=== PATIENT | male | born 1990 | race Caucasian/White ===

== ENCOUNTER 2023-02-08 20:12 | Emergency (ER) | payer MEDICAID ==
[~2023-02-08] VITALS: Ht 185.4 cm; Wt 73.0 kg
[2023-02-08] MEDS ORDERED: TETANUS, DIPHTHERIA, PERTUSSIS VAC/PF 0.5ML (>10YR OLD) IM ONE (21:00)
[2023-02-08] MEDS ORDERED: ACETAMINOPHEN 325MG TABLET PO ONE (21:00)
[2023-02-08] MEDS ORDERED: IBUPROFEN 400MG TABLET PO ONE (21:00)
[2023-02-08] MEDS ORDERED: LIDOCAINE HCL/EPINEPHRINE 1%-EPI 1:100,000 50 ML VIAL INFIL ONE (21:00)
[2023-02-08] MEDS: LIDOCAINE 5% PATCH TOP SCH ×3 (21:15→22:48)
[2023-02-08] MEDS ORDERED: AMOX1TAB16 MT (22:13)
[2023-02-08 22:48] VITALS: BP 127/81
== END 2023-02-08 23:05 | disposition home or self-care (01) ==
LOC: ER 20:12
DX: S01.511A Laceration without foreign body of lip, initial encounter (principal); X58.XXXA Exposure to other specified factors, initial encounter; Y93.89 Activity, other specified; Y92.89 Other specified places as the place of occurrence of the external cause; Y99.8 Other external cause status; R07.81 Pleurodynia
CPT/HCPCS: 12011; 71101; 90471; 90715; 99284; Z7610